=== PATIENT | male | born 1985 | race Caucasian/White ===

== ENCOUNTER 2016-09-16 01:20 | Emergency (ER) | payer OTHER ==
[~2016-09-16 01:20] MED LIST: NAPROSYN250 M1; NO MEDICATIONS; NORFLEX100 M1 PO; ROBAXIN500 MG; VOLTAREN75 MG PO
== END 2016-09-16 01:34 | disposition left against medical advice (07) ==
LOC: CED 01:20
DX: Z53.21 Procedure and treatment not carried out due to patient leaving prior to being seen by health care provider (principal)